=== PATIENT | male | born 1985 | race Caucasian/White ===

== ENCOUNTER 2024-03-24 08:42 | Outpatient (CLI) | payer OTHER, SELFPAY | END 2024-03-24 08:43 | disposition home or self-care (01) | LOC: NFLDREF 03-27 07:15 | PROVIDERS: PCP Family Medicine; Referring Provider Family Medicine; Visit Provider Family Medicine | DX: M79.10 Myalgia, unspecified site (principal); Z13.1 Encounter for screening for diabetes mellitus; Z13.6 Encounter for screening for cardiovascular disorders | CPT/HCPCS: 80053; 80061; 86618 ==

== ENCOUNTER 2024-05-01 11:13 | Outpatient (CLI) | payer OTHER, SELFPAY | END 2024-05-01 11:14 | disposition home or self-care (01) | PROVIDERS: PCP Family Medicine; Visit Provider Family Medicine | DX: M10.9 Gout, unspecified (principal); R76.8 Other specified abnormal immunological findings in serum; E55.9 Vitamin D deficiency, unspecified; R53.83 Other fatigue | CPT/HCPCS: 80048; 82306; 84443; 84550; 86618 ==

== ENCOUNTER 2024-05-08 14:08 | Outpatient (CLI) | payer OTHER, SELFPAY ==
--- NOTE | 2024-05-08 14:30 | CRLHL7_ITS ---
For Patients: As a result of the Century Cures Act, medical imaging exams and procedure reports are released immediately into your electronic medical record. You may view this report before your referring provider. If you have questions, please contact your health care provider. INDICATION: Meniere`s disease. TECHNIQUE: Multisequence multiplanar MRI of the brain and internal auditory canals prior to and following administration of 15 cc Dotarem gadolinium-based intravenous contrast. COMPARISON: None available. FINDINGS: Dedicated imaging of the internal auditory canals demonstrates normal course of the cranial nerve 7/8 complexes. No enhancing cerebellopontine angle mass is identified. On limited evaluation with conventional MRI, the cochlea, vestibule, and semicircular canals appear within normal limits. No evidence of acute ischemia. Normal signal intensity of the brain parenchyma. No focus of abnormal brain parenchymal or leptomeningeal enhancement. The ventricles are normal in size. Flow voids of the larger intracranial arteries are preserved. Normal calvarial bone marrow signal intensity. Unremarkable orbits. Moderate mucosal thickening within the right frontal sinus, anterior ethmoid air cells, and maxillary alveolar recesses. IMPRESSION: 1. Conventional MRI of the internal auditory canals demonstrate a normal appearance of the membranous labyrinths and no cerebellopontine angle mass. 2. Unremarkable contrast-enhanced MRI of the brain. 3. Moderate mucosal thickening within the right frontal sinus, anterior ethmoid air cells, and maxillary alveolar recesses. Dictated by Julien Edwards MD @ 05/08/2024 10:09:59 PM (Electronically Signed)
== END 2024-05-08 14:09 | disposition home or self-care (01) ==
LOC: MRI 14:08
PROVIDERS: PCP Family Medicine; Visit Provider Family Medicine
DX: H81.09 Meniere's disease, unspecified ear (principal); J32.1 Chronic frontal sinusitis; J32.2 Chronic ethmoidal sinusitis
CPT/HCPCS: 70553; A9575